=== PATIENT | male | born 1965 | race Caucasian/White ===

== ENCOUNTER 2021-01-10 14:30 | Emergency (ER) | payer SELFPAY ==
[~2021-01-10] VITALS: Ht 177.8 cm; Wt 101.8 kg
[2021-01-10 14:43] VITALS: BP 165/135
[2021-01-10] MEDS ORDERED: LIDOCAINE 1%/EPI 1:100,000 20 ML VIAL. IJ ONE (14:45)
[2021-01-10] MEDS ORDERED: LIDOCAINE/EPI/TETRACAINE TOPICAL GEL 3 ML. TP ONE (14:45)
[2021-01-10] MEDS ORDERED: MORPHINE SULFATE 4 MG/ML DISP.SYRIN. IM ONE (14:45)
--- NOTE | 2021-01-10 14:57 | PHYS DOC ---
Past History Past Medical History: No Pertinent History Past Surgical History: No Surgical History Alcohol Use: Occasionally Adult General Chief Complaint Chief Complaint: ANIMAL BITE HPI HPI Patient is a 55-year-old male patient presented to the ED today with dog bites to the left forearm. Patient got bit by his own pitbull. He states his dogs were fighting he tried to separate them and the pitbull bit him. Review of Systems Review of Systems Constitutional: Denies fever or chills [] Musculoskeletal: Denies back pain or joint pain [] Integument: Reports dog bites to the left forearm Neurologic: Denies headache, focal weakness or sensory changes [] All other systems were reviewed and found to be within normal limits, except as documented in this note. Current Medications Current Medications Current Medications Medications (Trade) Dose Ordered Sig/Lisa Start Time Stop Time Status Last Admin Dose Admin Lidocaine/ Epinephrine (Let ([id number]-[id number]) Gel) 9 ml 1X ONCE 01/10/21 14:45 01/10/21 14:51 DC Lidocaine/ Epinephrine (Xylocaine 1%-Epi 1:100,000) 20 ml 1X ONCE 01/10/21 14:45 01/10/21 14:46 UNV Lidocaine/ Epinephrine (Xylocaine 2%-Epi 1:100,000) 20 ml 1X ONCE 01/10/21 15:00 01/10/21 15:01 Morphine Sulfate (Morphine 4mg Syringe) 4 mg 1X ONCE 01/10/21 14:45 01/10/21 14:51 DC 01/10/21 14:51 4 MG Allergies Allergies Allergies Coded Allergies Type Severity Reaction Last Updated Verified No Known Drug Allergies 01/10/21 No Physical Exam Physical Exam Constitutional: Well developed, well nourished, no acute distress, non-toxic appearance. [] Skin: Left mid forearm with multiple dog bites some of them very deep and wide, there is a 3.5 cm laceration by 1 cm, follow-up 0.0 x 5 cm, 5 cm x 1 cm, left ventral forearm with 2 cm laceration, another 2 cm laceration, another 3 cm laceration, another 1 cm laceration, number 1 cm laceration, another 1 cm laceration. Neurovascular exam is intact to the left upper extremity peripheral less than 2 seconds to left fingers Back: No tenderness, no CVA tenderness. [] Extremities: No tenderness, no cyanosis, no clubbing, ROM intact, no edema. [] Neurologic: Alert and oriented X 3, normal motor function, normal sensory function, no focal deficits noted. [] Psychologic: Affect normal, judgement normal, mood normal. [] Current Patient Data Vital Signs Vital Signs Date Time Temp Pulse Resp B/P (MAP) Pulse Ox O2 Delivery O2 Flow Rate FiO2 01/10/21 14:43 120 26 165/135 (145) 100 EKG EKG [] Radiology/Procedures Radiology/Procedures PROCEDURE: FOREARM LEFT EXAM: Left forearm, 2 views. HISTORY: Dog bites. COMPARISON: None. FINDINGS: 2 views of the lentiform are obtained. There is left forearm soft tissue gas due to recent penetrating injury. There is a 5 x 3 mm radiodense foreign body within the soft tissues along the radial aspect of the wrist. No forearm soft tissue foreign body is seen. There is no acute fracture. 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 IMPRESSION: 1. Soft tissue lacerations with associated gas involving the forearm. 2. Small foreign body within the radial aspect of the wrist soft tissues. Electronically signed by: Maryjane Carbajal MD (01/10/2021 3:14 PM) [id number] DICTATED AND SIGNED BY: MARYJANE CARBAJAL MD DATE: 01/10/211511 CC: RAHEEL FLOWER APRN; PCP,NO ~MTH0 0 Laceration/Wound Repair Wound Location: Left forearm dog bite Wound's Depth, Shape: Multiple bites in different shapes Wound Explored: clean Irrigated w/ Saline (ccs): 1000 Betadine Prep?: y Anesthesia: Let solution 9 cc and then 1% of lidocaine with epinephrine 20 mL 3.5 cm bite was closed with 4 interrupted sutures using 3.0 Ethilon, 4 x 5 cm bite was closed with 8 interrupted sutures using 3.0 Ethilon, 5 cm dog bite laceration was closed with 4 simple interrupted sutures using 3.0 Ethilon. Left ventral forearm 2 cm laceration was closed with 2 stitches, 3 cm laceration was closed with 3 stitches, Ethilon 3.0 was used Lacerations were done loosely Progress : Wound was covered with nonstick dressing Heart Score Risk Factors: Risk Factors: DM, Current or recent (<one month) smoker, HTN, HLP, family history of CAD, obesity. Risk Scores: Risk Factors: DM, Current or recent (<one month) smoker, HTN, HLP, family history of CAD, obesity. Course & Med Decision Making Course & Med Decision Making Pertinent Labs and Imaging studies reviewed. (See chart for details) This is a 55-year-old male patient presenting to the ED today with dog bites to the left forearm. Patient's dog is up-to-date with its shots. Patient is up-to-date with his tetanus. Left forearm x-rays interpreted by radiologist were noted for a small radiopaque object on the left wrist, there is no dog bite to this region. 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 Multiple other dog bite wounds were left open. Patient was started on Augmentin. He is to return to the ED in 5 days for wound check and suture removal. Provided wound care instructions. Dragon Disclaimer Dragon Disclaimer This electronic medical record was generated, in whole or in part, using a voice recognition dictation system. Departure Departure: Impression: Primary Impression: Dog bite of upper extremity Disposition: 01 DC HOME SELF CARE/HOMELESS Condition: STABLE Referrals: PCPNO (PCP) follow up with the Ed in 5 days for wound check and suture removal Patient Instructions: Animal Bite, [id number] Additional Instructions: Please keep the dog bite sites clean and dry. Remove the dressing in 24 hours if is not bleeding or draining. You can wash the areas with regular soap and water once or twice a week. Apply Neosporin to the areas twice a day. Monitor the area for any signs of infection including but not limited to increased redness, warmth, yellow drainage from the area and return to the ED. Take the prescribed antibiotics until completed. Please return to the ED in 5 days for suture removal and wound check. Scripts Hydrocodone Bit/Acetaminophen (HYDROCODONE-APAP 5-325 ) 1 Each Tablet 1 TAB PO PRN Q6HRS PRN for PAIN, #20 TAB 0 Refills Prov: MUTUNGA,RAHEEL MARKETING RESEARCH COORDINATOR 01/10/21 Amoxicillin/Potassium Clav (AUGMENTIN 875-125 TABLET) 1 Each Tablet 1 TAB PO BID for 10 Days, #20 TAB 0 Refills Prov: RAHEEL FLOWER APRN 01/10/21 Problem Qualifiers Primary Impression: Dog bite of upper extremity Encounter type: initial encounter Laterality: left Qualified Codes: S41.152A - Open bite of left upper arm, initial encounter; W54.0XXA - Bitten by dog, initial encounter RHAEEL FLOWER APRN Jan 10, 2021 14:57
[2021-01-10] MEDS ORDERED: LIDOCAINE 2%/EPI 1:100,000 20 ML VIAL. IJ ONE ×3 (15:00)
--- NOTE | 2021-01-10 15:16 | RAD ---
EXAM: Left forearm, 2 views. HISTORY: Dog bites. COMPARISON: None. FINDINGS: 2 views of the lentiform are obtained. There is left forearm soft tissue gas due to recent penetrating injury. There is a 5 x 3 mm radiodense foreign body within the soft tissues along the rad ial aspect of the wrist. No forearm soft tissue foreign body is seen. There is no acute fracture. The re is a corticated ossicle along the dorsal aspect of the carpal bones possibly due to a chronic nonu nited triquetral fracture. IMPRESSION: 1. Soft tissue lacerations with associated gas involving the forearm. 2. Small foreign body within the radial aspect of the wrist soft tissues. Electronically signed by: Maryjane Carbajal MD (01/10/2021 3:14 PM) [id number]
[2021-01-10] MEDS ORDERED: AMOXICILLIN/K CLAV 875/125MG TABLET. PO ONE (15:45)
[2021-01-10] MEDS ORDERED: HYDR-2155 PO (16:58)
[2021-01-10] MEDS ORDERED: AMOX1TAB61 PO (16:58)
== END 2021-01-10 17:03 | disposition home or self-care (01) ==
LOC: ER 14:30
DX: S51.812A Laceration without foreign body of left forearm, initial encounter (principal); W54.0XXA Bitten by dog, initial encounter; Y93.89 Activity, other specified; Y92.89 Other specified places as the place of occurrence of the external cause; Y99.8 Other external cause status
CPT/HCPCS: 12005; 73090; 99283; J2270

== ENCOUNTER 2021-01-15 15:13 | Emergency (ER) | payer SELFPAY ==
[~2021-01-15] VITALS: Ht 177.8 cm; Wt 101.8 kg
[~2021-01-15 15:13] MED LIST: AMOX1TAB61 PO; HYDR-2155 PO
[2021-01-15 15:34] VITALS: BP 151/85
[2021-01-15] MEDS ORDERED: HYDR-2759 PO (15:34)
[2021-01-15] MEDS ORDERED: AMOX1TAB61 PO (15:34)
--- NOTE | 2021-01-15 15:34 | PHYS DOC ---
Past History Past Medical History: No Pertinent History Past Surgical History: No Surgical History Alcohol Use: Occasionally General Adult EDM: Chief Complaint: SUTURE/STAPLE REMOVAL HPI: HPI: Patient is a 55-year-old male coming in for suture removal. Had 21 sutures placed 1 week ago after his neighbors dog bit him in multiple locations on his left forearm. Patient states he has been taking his antibiotics and his pain medications but still complaining of pain and swelling. Bruising is resolving on his inner left arm. No systemic complaints. Otherwise has been well. Review of Systems: Review of Systems: All other systems within normal limits except for as noted in the HPI Allergies: Allergies: Allergies Coded Allergies Type Severity Reaction Last Updated Verified No Known Drug Allergies 01/10/21 No Physical Exam: PE: Constitutional: Well developed, well nourished, no acute distress, non-toxic appearance. [] HENT: Normocephalic, atraumatic, bilateral external ears normal, nose normal. [] Eyes: PERRLA, conjunctiva normal, no discharge. [] Neck: No rigidity, supple, no stridor. [] Cardiovascular: Regular rate and rhythm, brisk cap refill [] Lungs & Thorax: Non labored symmetric respirations, no tachypnea or respiratory distress [] Abdomen: Soft, nondistended. Skin: Warm, dry, no erythema, no rash. Left forearm, there are areas of sutured wounds. Clean and intact. Surrounding erythema and moderate swelling, compartments soft. [] Back: Unremarkable Extremities: No deformities, range of motion grossly intact, no lower extremity edema [] Neurologic: Alert and oriented X 3, no focal deficits noted. [] Psychologic: Affect normal, judgement normal, mood normal. [] EKG: EKG: [] Radiology/Procedures: Radiology/Procedures: [] Heart Score: Risk Factors: Risk Factors: DM, Current or recent (<one month) smoker, HTN, HLP, family history of CAD, obesity. Risk Scores: Score 0 - 3: 2.5% MACE over next 6 weeks - Discharge Home Score 4 - 6: 20.3% MACE over next 6 weeks - Admit for Clinical Observation Score 7 - 10: 72.7% MACE over next 6 weeks - Early Invasive Strategies Course & Med Decision Making: Course & Med Decision Making Sutures removed without complication. Garrett Disclaimer: Garrett Disclaimer: This electronic medical record was generated, in whole or in part, using a voice recognition dictation system. Departure Departure: Impression: Primary Impression: Encounter for removal of sutures Disposition: 01 DC HOME SELF CARE/HOMELESS Condition: STABLE Referrals: PCP,NO (PCP) Patient Instructions: Suture Removal Scripts Hydrocodone/Acetaminophen (Hydrocodone-Acetamin 5-325 mg) 1 Each Tablet 1 EACH PO PRN Q6-8HRS PRN for PAIN for 5 Days, #15 TAB Prov: NOEMI AMARAL MD 01/15/21 Amoxicillin/Potassium Clav (AUGMENTIN 875-125 TABLET) 1 Each Tablet 1 TAB PO BID for antibiotic for 5 Days, #10 TAB 0 Refills Prov: NOEMI AMARAL MD 01/15/21 NEOMI AMARAL MD Jan 15, 2021 15:34
== END 2021-01-15 15:58 | disposition home or self-care (01) ==
LOC: ER 15:13
DX: S51.812D Laceration without foreign body of left forearm, subsequent encounter (principal); W54.0XXD Bitten by dog, subsequent encounter
CPT/HCPCS: 99283